=== PATIENT | male | born 1990 | race Caucasian/White ===

== ENCOUNTER 2017-04-11 17:01 | Emergency (ER) | payer OTHER ==
[2017-04-11 17:06] VITALS: BP 131/78; PULSE 101; RESP 24; O2SAT 98
--- NOTE | 2017-04-11 17:17 | ED.REPORT ---
HPI-Psychiatric Illness Date of Service Apr 11, 2017 ED Provider: History of Present Illness: wants detox from heroin, no previous detox. last use 6 hours ago, inject. no primary care.. Not interested in suboxone at this time. Nursing Notes Stated Complaint: DETOX REQUESTED Chief Complaint: Substance Abuse Nursing Notes Reviewed: Yes Allergies: Coded Allergies: Penicillins (Verified Allergy, Intermediate, RASH AND SWELLING, 04/11/17) General Time Seen by MD: 17:17 Chief Complaint Other (wants detox) Hx Obtained From: Patient Onset Occurred: More than a week ago... 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 04/11/2017 Ambulatory Status Independent Review of Systems Basic Review of Systems Eyes: Vision NL, No discharge Hematologic: No bleeding, No bruising Allergy / Immune: No allergy Physical Exam Initial Vital Signs Vital Signs (First) Date Time Temp Pulse Resp B/P Pulse Ox O2 Delivery O2 Flow Rate FiO2 04/11/17 17:06 37.1 101 24 131/78 98 Room Air Initial VS: Reviewed, Vital signs normal Head / Eyes: Atraumatic, Normocephalic, PERRL ENT: Mucous membranes moist, Conjunctiva normal, No scleral icterus Neck: Supple, Non-tender, Full range of motion Respiratory: Breath sounds normal, Clear to auscultation, No respiratory distress Cardiovascular: Regular rate & rhythm, Heart sounds normal, Intact distal pulses Abdomen / GI: Soft, Non-tender, No guarding, No rebound, No distention Back: No CVA tenderness Lymphatic: No lymphadenopathy Extremities: Vascular intact, Neuro intact, No swelling, No tenderness Skin: Warm, Dry, No cyanosis General/Constitutional: Awake, Alert, Well appearing, Well developed, Well hydrated, Well nourished, Cooperative Neurologic: Oriented X3, Speech NL, No motor deficits, No sensory deficits Psychiatric: Affect NL, Mood NL, Not suicidal, Not homicidal, No hallucinations , Cognitive function NL, Judgment/insight NL Head / Eyes: Atraumatic, Normocephalic, PERRL, EOMI ENT: Atraumatic, Airway patent, Mucous membranes moist, Pharynx NL Respiratory / Chest: Atraumatic, Breath sounds NL, Breath sounds = bilat, No respiratory distress Cardiovascular: Heart rate NL, Regular rhythm, Heart sounds NL, No gallop Re-Eval/Medical Decision Med Decision/Clinical Course Consult with social work, no bed available at this time. Discussed with patient, advised no bed available at this time. Paitent states he is not interested in suboxone at this time. Encouraged to check back daily till a bed opens up. No sign of infection at this time. Discharge & Departure Impression: Primary Impression: Substance abuse Patient Instructions: Opioid Withdrawal (ED) Additional Instructions: At this time there are no beds available at the Crisis center. You can check tomorrow to see if anything is available. Another option is [facility]. Please call them if you are interested in this. Referrals: [facility] Provider for APC: Marvin Matias DO copies to: [facility] Brigitte Tuttle Apr 11, 2017 17:17
[2017-04-11 18:14] VITALS: BP 131/78; PULSE 101; RESP 24; O2SAT 98
== END 2017-04-11 18:10 | disposition home or self-care (01) ==
LOC: EDSEX 17:01 → SED 17:01
DX: F19.10 Other psychoactive substance abuse, uncomplicated (principal); Z88.0 Allergy status to penicillin